=== PATIENT | male | born 2000 | race African-American/Black ===

== ENCOUNTER 2019-10-04 14:02 | Emergency (ER) | payer SELFPAY ==
[~2019-10-04] VITALS: Ht 182.9 cm; Wt 95.0 kg
[2019-10-04] MEDS ORDERED: LEVETIRACETAM 1000MG/100ML 100 ML IV ONE (14:30)
[2019-10-04 14:51] LABS: CHLORIDE 107 mEq/L (98-107)
[2019-10-04 14:52] LABS: BASOPHILS % 0.7 % (0.0-2.0); EOSINOPHILS % 1.1 % (0.0-5.0); HEMATOCRIT. 43.7 % (42.0-52.0); HEMOGLOBIN. 14.6 g/dL (14.0-18.0); LYMPHOCYTES % 17.3 % (20.0-50.0); MEAN CORPUSCULAR HEMOGLOBIN 27.7 pg (28.0-32.0); MEAN PLATELET VOLUME 9.6 fl (7.4-10.4); MONOCYTES % 9.3 % (2.0-8.0); NEUTROPHILS % 71.6 % (40.0-76.0); PLATELET 162 x1000/uL (130-400); RED BLOOD CELL COUNT 5.26 mill/uL (4.7-6.1); RED CELL DISTRIBUTION WIDTH 14.2 % (11.6-14.6)
[2019-10-04 14:55] LABS: ETHANOL BLOOD < 10 mg/dL
[2019-10-04 20:16] VITALS: BP 115/60
== END 2019-10-04 20:44 | disposition home or self-care (01) ==
LOC: ER 14:02
DX: G40.909 Epilepsy, unspecified, not intractable, without status epilepticus (principal)
CPT/HCPCS: 36415; 80053; 80320; 85025; 96365; 96366; 99285; J1953; G0480